=== PATIENT | male | born 1975 | race Caucasian/White ===

== ENCOUNTER 2017-02-06 01:13 | Emergency (ER) | payer OTHER ==
[~2017-02-06] VITALS: Ht 182.9 cm; Wt 83.9 kg
[2017-02-06] MEDS ORDERED: NKM (01:23)
[2017-02-06] MEDS ORDERED: Norco 5mg/325mg tab ORAL ONE (01:45)
[2017-02-06] MEDS ORDERED: IBUPROFEN600 MG ORAL (02:23)
[2017-02-06] MEDS ORDERED: HYDROCODON-ACE1 EA15 ORAL (02:23)
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
[2017-02-06 02:33] VITALS: BP 121/75
--- NOTE | 2017-02-06 08:37 | Diagnostic Imaging Report ---
Indications: Right shoulder trauma, pain Technique: 3 views right shoulder. Findings: Comparison: None No fracture, dislocation, joint space widening , surrounding soft tissue swelling/foreign body/gas, or other acute changes are identified. IMPRESSION: No evidence of acute injury to the right shoulder.
== END 2017-02-06 02:49 | disposition home or self-care (01) ==
LOC: EMR 01:30
DX: S46.911A Strain of unspecified muscle, fascia and tendon at shoulder and upper arm level, right arm, initial encounter (principal); X58.XXXA Exposure to other specified factors, initial encounter; Y93.72 Activity, wrestling; Y92.9 Unspecified place or not applicable
CPT/HCPCS: 29240; 99284